=== PATIENT | male | born 1945 | race Caucasian/White ===

== ENCOUNTER → 2021-02-13 | Outpatient (CLI) | payer MEDICARE, BC | LOC: NM 13:38 | PROVIDERS: ATTEND Urology | DX: N18.9 Chronic kidney disease, unspecified (principal) | CPT/HCPCS: 78707; A9562 ==

== ENCOUNTER 2021-04-10 11:40 | Inpatient (IN) | payer MEDICARE, BC ==
[2021-04-07 11:06] LABS: BASOPHILS # (AUTO) 0.1 (0.0-0.1); BASOPHILS % 0.8 % (0.0-1.0); EOSINOPHILS # (AUTO) 0.1 (0.0-0.4); EOSINOPHILS % 1.7 % (0.0-6.0); HEMATOCRIT 44.3 % (38.2-49.6); HEMOGLOBIN 14.4 g/dL (14.0-18.0); LYMPHOCYTES # (AUTO) 1.3 (1.0-3.2); MEAN CORPUSCULAR HEMOGLOBIN 30.5 pg (28-32); MEAN CORPUSCULAR HGB CONC 32.5 g/dL (31-35); MEAN CORPUSCULAR VOLUME 93.9 fL (81-99); MONOCYTES # (AUTO) 0.5 (0.2-0.8); NEUTROPHILS # (AUTO) 4.7 (2.1-6.9); PLATELET COUNT 141 x10e3/uL (140-360); RED BLOOD COUNT 4.72 x10e6/uL (4.3-5.7); RED CELL DISTRIBUTION WIDTH 13.9 % (11.7-14.4)
[2021-04-07 11:27] LABS: ALANINE AMINOTRANSFERASE 26 IU/L (0-55); ALBUMIN/GLOBULIN RATIO 1.5 (0.8-2.0); ALKALINE PHOSPHATASE 85 IU/L (40-150); ANION GAP 13.7 mmol/L (8-16); BLOOD UREA NITROGEN 24 mg/dL (7-26); BUN/CREATININE RATIO 22 (6-25); CALCIUM 8.8 mg/dL (8.4-10.2); CARBON DIOXIDE 21 mmol/L (22-29); CHLORIDE 109 mmol/L (98-107); EST GLOMERULAR FILTRATION RATE > 60 ML/MIN (60-); GLUCOSE 129 mg/dL (74-118); POTASSIUM 4.7 mmol/L (3.5-5.1); SODIUM 139 mmol/L (136-145)
[~2021-04-10] VITALS: Ht 180.3 cm; Wt 128.8 kg
[2021-04-10] VITALS (10 sets, daily range): BP systolic 120–151; BP diastolic 69–87
[~2021-04-10 11:40] MED LIST: ALLOPURINOL300 MG PO; CETIRIZINE HCL10 MG PO; COREG12.5 MG PO; ELIQUIS5 MG PO; FUROSEMIDE40 MG PO; GLUCOPHAGE XR500 MG PO; LIPITOR10 MG PO; LOSARTAN POTASS25 MG PO; LOTRIMIN AF12 GM TOP; PLAVIX75 MG PO; SPIRONOLACTONE25 MG PO; VIT B12 PO; VIT D3 PO; VOLTAREN100 GM TOP
[2021-04-10] MEDS ORDERED: LIDOCAINE HCL 2% LOCAL INJ 5 ML SDV VIAL INJ ONE (11:53)
[2021-04-10] MEDS ORDERED: POVIDONE IODINE 0.05% 0.05 % ML PO ONE (11:53)
[2021-04-10] MEDS ORDERED: PHENYLEPHRINE HCL 1% 10 MG/ML VIAL ONE (11:53)
[2021-04-10] MEDS ORDERED: ONDANSETRON HCL INJ 2MG/ML 2ML 2 MG/ML VIAL ONE (11:53)
[2021-04-10] MEDS ORDERED: GLYCOPYRROLATE INJ 0.2 MG/ML VIAL ONE (11:53)
[2021-04-10] MEDS ORDERED: PROPOFOL IV EMULSION 10 MG/ML 20 ML VIAL ONE (11:53)
[2021-04-10] MEDS ORDERED: ROCURONIUM BROMIDE 10 MG/ML 5ML VIAL IV ONE (11:53)
[2021-04-10] MEDS ORDERED: NEOSTIGMINE 1 MG/ML 10ML VIAL ONE (11:53)
[2021-04-10] MEDS ORDERED: DEXAMETHASONE SOD PHOS INJ 4 MG/ML VIAL ONE (11:53)
[2021-04-10] MEDS ORDERED: SEVOFLURANE INHAL SOLN 250 ML PEN BTL ONE (11:53)
[2021-04-10] MEDS ORDERED: MANNITOL 25% 12.5GM/50ML 50 ML ONE (11:55)
[2021-04-10] MEDS ORDERED: CEFAZOLIN SOD 1 GM/NS 50ML 100 ML IV ONE (12:32)
[2021-04-10] MEDS ORDERED: MORPHINE SULFATE 1 MG/ML 30ML PCA IV PRN (13:00)
[2021-04-10] MEDS: SODIUM CHLORIDE 0.9% 250ML IRRIG IR SCH ×3 (13:00→21:24)
[2021-04-10] MEDS ORDERED: ONDANSETRON HCL INJ 2MG/ML 2ML 2 MG/ML VIAL IV PRN (13:00)
[2021-04-10] MEDS ORDERED: DIPHENHYDRAMINE HCL INJ 50 MG/ML VIAL IM PRN (13:00)
[2021-04-10] MEDS ORDERED: SOD CHL 0.45%/POT CHL 20MEQ 1,000 ML IV SCH (13:00)
[2021-04-10] MEDS ORDERED: NALOXONE HCL INJ 0.4 MG/ML AMP IV PRN (13:00)
[2021-04-10] MEDS ORDERED: FENTANYL CITRATE/PF 100MCG/2 ML INJ ONE ×2 (16:15→19:29)
[2021-04-10] MEDS ORDERED: MORPHINE SULFATE 1 MG/ML 30ML PCA ONE (16:19)
[2021-04-10 16:55] LABS: BASOPHILS # (AUTO) 0.1 (0.0-0.1); BASOPHILS % 0.4 % (0.0-1.0); EOSINOPHILS % 0.1 % (0.0-6.0); HEMATOCRIT 44.1 % (38.2-49.6); LYMPHOCYTES # (AUTO) 0.8 (1.0-3.2); LYMPHOCYTES % 6.3 % (18.0-39.1); MEAN CORPUSCULAR HGB CONC 31.7 g/dL (31-35); MEAN CORPUSCULAR VOLUME 94.6 fL (81-99); MONOCYTES # (AUTO) 0.3 (0.2-0.8); MONOCYTES % 2.5 % (4.4-11.3); NEUTROPHILS % 90.3 % (38.7-80.0); PLATELET COUNT 141 x10e3/uL (140-360); RED BLOOD COUNT 4.66 x10e6/uL (4.3-5.7); RED CELL DISTRIBUTION WIDTH 13.8 % (11.7-14.4)
[2021-04-10 17:13] LABS: CALCIUM 8.6 mg/dL (8.4-10.2); CREATININE, SERUM 1.27 mg/dL (0.72-1.25)
[2021-04-10] MEDS ORDERED: ACETAMINOPHEN 1000 MG/100 ML IV PRN (18:00)
[2021-04-10] MEDS: CEFAZOLIN SOD 1 GM/NS 50ML 50 ML IV SCH (21:25)
[2021-04-10] MEDS: SODIUM CHLORIDE 0.45% 1,000 ML IV SCH (22:13)
[2021-04-11] VITALS (26 sets, daily range): BP systolic 92–138; BP diastolic 56–90
[2021-04-11] MEDS: SODIUM CHLORIDE 0.9% 250ML IRRIG IR SCH ×3 (01:00→07:46)
[2021-04-11 05:13] LABS: BASOPHILS % 0.1 % (0.0-1.0); HEMATOCRIT 44.4 % (38.2-49.6); HEMOGLOBIN 14.1 g/dL (14.0-18.0); LYMPHOCYTES # (AUTO) 0.4 (1.0-3.2); LYMPHOCYTES % 2.8 % (18.0-39.1); MEAN CORPUSCULAR HEMOGLOBIN 30.4 pg (28-32); MEAN CORPUSCULAR HGB CONC 31.8 g/dL (31-35); MEAN CORPUSCULAR VOLUME 95.7 fL (81-99); MONOCYTES # (AUTO) 0.9 (0.2-0.8); MONOCYTES % 6.1 % (4.4-11.3); NEUTROPHILS % 90.4 % (38.7-80.0); PLATELET COUNT 129 x10e3/uL (140-360); RED BLOOD COUNT 4.64 x10e6/uL (4.3-5.7); RED CELL DISTRIBUTION WIDTH 13.5 % (11.7-14.4)
[2021-04-11 05:30] LABS: CALCIUM 8.4 mg/dL (8.4-10.2); CREATININE, SERUM 1.54 mg/dL (0.72-1.25)
[2021-04-11] MEDS: SODIUM CHLORIDE 0.45% 1,000 ML IV SCH ×3 (06:20→21:11)
[2021-04-11] MEDS: CEFAZOLIN SOD 1 GM/NS 50ML 50 ML IV SCH ×3 (06:20→21:18)
[2021-04-11] MEDS ORDERED: DEXTROSE 50% SYRINGE 50 ML IV STA (07:16)
[2021-04-11] MEDS ORDERED: INSULIN REGULAR, HUMAN 100 UNIT/1 ML 3ML VIAL IV ONE (07:30)
[2021-04-11] MEDS ORDERED: CALCIUM GLUCONATE 10% INJ 9.3 MEQ in SODIUM CHLORIDE 0.9% 100 ML 100 ML IV ONE (07:30)
[2021-04-11] MEDS ORDERED: FUROSEMIDE INJ 10 MG/ML 4 ML VIAL IV ONE ×2 (07:30→19:30)
[2021-04-11] MEDS ORDERED: MORPHINE SULFATE 1 MG/ML 30ML PCA IV PRN (11:45)
[2021-04-11 12:23] LABS: CREATINE KINASE MB 4.4 ng/mL (0-5.0)
[2021-04-12] VITALS (19 sets, daily range): BP systolic 99–135; BP diastolic 58–83
[2021-04-12 05:53] LABS: BASOPHILS % 0.2 % (0.0-1.0); EOSINOPHILS # (AUTO) 0.1 (0.0-0.4); EOSINOPHILS % 0.5 % (0.0-6.0); HEMATOCRIT 41.6 % (38.2-49.6); HEMOGLOBIN 13.7 g/dL (14.0-18.0); LYMPHOCYTES # (AUTO) 0.8 (1.0-3.2); LYMPHOCYTES % 7.8 % (18.0-39.1); MEAN CORPUSCULAR HEMOGLOBIN 30.7 pg (28-32); MEAN CORPUSCULAR HGB CONC 32.9 g/dL (31-35); MEAN CORPUSCULAR VOLUME 93.3 fL (81-99); MONOCYTES # (AUTO) 1.1 (0.2-0.8); MONOCYTES % 10.1 % (4.4-11.3); NEUTROPHILS # (AUTO) 8.5 (2.1-6.9); PLATELET COUNT 155 x10e3/uL (140-360); RED BLOOD COUNT 4.46 x10e6/uL (4.3-5.7)
[2021-04-12 06:10] LABS: ALBUMIN 3.5 g/dL (3.5-5.0); ALBUMIN/GLOBULIN RATIO 1.2 (0.8-2.0); ANION GAP 18.5 mmol/L (8-16); CALCIUM 8.6 mg/dL (8.4-10.2); CREATININE, SERUM 1.86 mg/dL (0.72-1.25); POTASSIUM 4.5 mmol/L (3.5-5.1)
[2021-04-12] MEDS: CEFAZOLIN SOD 1 GM/NS 50ML 50 ML IV SCH ×3 (06:15→21:34)
[2021-04-12] MEDS ORDERED: BISACODYL 10 MG SUPP PR ONE (15:30)
[2021-04-12] MEDS: SODIUM CHLORIDE 0.45% 1,000 ML IV SCH (15:44)
[2021-04-13] VITALS (8 sets, daily range): BP systolic 116–144; BP diastolic 72–87
[2021-04-13 05:23] LABS: BASOPHILS % 0.5 % (0.0-1.0); EOSINOPHILS # (AUTO) 0.1 (0.0-0.4); EOSINOPHILS % 1.7 % (0.0-6.0); HEMATOCRIT 39.7 % (38.2-49.6); HEMOGLOBIN 12.9 g/dL (14.0-18.0); LYMPHOCYTES # (AUTO) 0.8 (1.0-3.2); LYMPHOCYTES % 10.2 % (18.0-39.1); MEAN CORPUSCULAR HEMOGLOBIN 30.3 pg (28-32); MEAN CORPUSCULAR HGB CONC 32.5 g/dL (31-35); MEAN CORPUSCULAR VOLUME 93.2 fL (81-99); MONOCYTES # (AUTO) 0.8 (0.2-0.8); MONOCYTES % 10.1 % (4.4-11.3); NEUTROPHILS # (AUTO) 6.3 (2.1-6.9); NEUTROPHILS % 77.1 % (38.7-80.0); PLATELET COUNT 112 x10e3/uL (140-360); RED BLOOD COUNT 4.26 x10e6/uL (4.3-5.7); RED CELL DISTRIBUTION WIDTH 13.8 % (11.7-14.4)
[2021-04-13 05:57] LABS: CALCIUM 8.5 mg/dL (8.4-10.2); CREATININE, SERUM 1.66 mg/dL (0.72-1.25)
[2021-04-13] MEDS: CEFAZOLIN SOD 1 GM/NS 50ML 50 ML IV SCH ×3 (06:14→22:03)
[2021-04-13] MEDS ORDERED: TRAMADOL HCL 50 MG TAB PO PRN (08:00)
[2021-04-13] MEDS ORDERED: BISACODYL 10 MG SUPP PR PRN (08:00)
[2021-04-13] MEDS ORDERED: BISACODYL 10 MG SUPP PR ONE (08:30)
[2021-04-13] MEDS: DOCUSATE SODIUM 100 MG CAP PO SCH ×2 (10:30→17:31)
[2021-04-13] MEDS: SODIUM CHLORIDE 0.45% 1,000 ML IV SCH (17:31)
[2021-04-14] VITALS (8 sets, daily range): BP systolic 110–155; BP diastolic 83–92
[2021-04-14] MEDS: CEFAZOLIN SOD 1 GM/NS 50ML 50 ML IV SCH ×3 (06:09→21:11)
[2021-04-14 06:21] LABS: BASOPHILS % 0.4 % (0.0-1.0); EOSINOPHILS # (AUTO) 0.1 (0.0-0.4); EOSINOPHILS % 1.4 % (0.0-6.0); HEMATOCRIT 41.2 % (38.2-49.6); HEMOGLOBIN 13.5 g/dL (14.0-18.0); LYMPHOCYTES # (AUTO) 0.5 (1.0-3.2); LYMPHOCYTES % 6.3 % (18.0-39.1); MEAN CORPUSCULAR HGB CONC 32.8 g/dL (31-35); MEAN CORPUSCULAR VOLUME 91.6 fL (81-99); MONOCYTES # (AUTO) 0.6 (0.2-0.8); MONOCYTES % 7.9 % (4.4-11.3); NEUTROPHILS # (AUTO) 6.2 (2.1-6.9); NEUTROPHILS % 83.7 % (38.7-80.0); PLATELET COUNT 124 x10e3/uL (140-360); RED CELL DISTRIBUTION WIDTH 13.6 % (11.7-14.4)
[2021-04-14 06:48] LABS: ANION GAP 17.7 mmol/L (8-16); CALCIUM 8.4 mg/dL (8.4-10.2); CREATININE, SERUM 1.53 mg/dL (0.72-1.25); POTASSIUM 3.7 mmol/L (3.5-5.1)
[2021-04-14] MEDS ORDERED: HYDRALAZINE HCL 25 MG TAB PO PRN (08:45)
[2021-04-14] MEDS: LORATADINE 10 MG TAB PO SCH (09:00)
[2021-04-14] MEDS: ALLOPURINOL 300 MG TAB PO SCH (09:00)
[2021-04-14] MEDS: DOCUSATE SODIUM 100 MG CAP PO SCH ×2 (09:28→16:42)
[2021-04-14] MEDS: ATORVASTATIN 40 MG TAB PO SCH (09:40)
[2021-04-14] MEDS ORDERED: CARVEDILOL 12.5 MG TAB PO SCH (17:00)
[2021-04-15 01:16] VITALS: BP 122/82
[2021-04-15] MEDS: CEFAZOLIN SOD 1 GM/NS 50ML 50 ML IV SCH (05:26)
[2021-04-15 05:34] LABS: BASOPHILS % 0.5 % (0.0-1.0); EOSINOPHILS # (AUTO) 0.2 (0.0-0.4); EOSINOPHILS % 3.7 % (0.0-6.0); HEMATOCRIT 38.7 % (38.2-49.6); HEMOGLOBIN 12.8 g/dL (14.0-18.0); LYMPHOCYTES # (AUTO) 1.1 (1.0-3.2); MEAN CORPUSCULAR HEMOGLOBIN 30.3 pg (28-32); MEAN CORPUSCULAR HGB CONC 33.1 g/dL (31-35); MEAN CORPUSCULAR VOLUME 91.5 fL (81-99); MONOCYTES # (AUTO) 0.7 (0.2-0.8); MONOCYTES % 10.7 % (4.4-11.3); NEUTROPHILS # (AUTO) 4.5 (2.1-6.9); NEUTROPHILS % 68.5 % (38.7-80.0); PLATELET COUNT 131 x10e3/uL (140-360); RED BLOOD COUNT 4.23 x10e6/uL (4.3-5.7); RED CELL DISTRIBUTION WIDTH 13.6 % (11.7-14.4)
[2021-04-15 05:55] LABS: ANION GAP 12.7 mmol/L (8-16); CALCIUM 8.1 mg/dL (8.4-10.2); CREATININE, SERUM 1.33 mg/dL (0.72-1.25); POTASSIUM 3.7 mmol/L (3.5-5.1)
[2021-04-15 05:59] VITALS: BP 115/73
[2021-04-15 06:13] LABS: MAGNESIUM 2.2 MG/DL (1.3-2.1); PHOSPHORUS 3.2 MG/DL (2.3-4.7)
[2021-04-15 06:33] LABS: THYROID STIMULATING HORMONE 0.791 uIU/mL (0.350-4.940)
[2021-04-15 08:17] VITALS: BP 124/72
[2021-04-15] MEDS: ALLOPURINOL 300 MG TAB PO SCH (08:42)
[2021-04-15] MEDS: DOCUSATE SODIUM 100 MG CAP PO SCH (08:42)
[2021-04-15] MEDS: LORATADINE 10 MG TAB PO SCH (08:42)
[2021-04-15] MEDS: ATORVASTATIN 40 MG TAB PO SCH (08:42)
[2021-04-15 09:14] VITALS: BP 124/72
[2021-04-15 11:25] VITALS: BP 124/79
[2021-04-15] MEDS ORDERED: CARVEDILOL 12.5 MG TAB PO SCH (17:00)
== END 2021-04-15 12:03 | disposition home or self-care (01) | DRG 656 ==
LOC: ICU 11:40 → OR 11:40 → EDSTATUS 13:30 → OR 17:34 → ICU 17:34 → MED/SURG 04-12 21:08
PROVIDERS: ADMIT Internal Medicine; ATTEND Internal Medicine
PROC: 0TB10ZZ Excision of Left Kidney, Open Approach (ICD-10-PCS; principal; 2021-04-10 13:30)
DX: C64.2 Malignant neoplasm of left kidney, except renal pelvis (principal); I50.43 Acute on chronic combined systolic (congestive) and diastolic (congestive) heart failure; N17.9 Acute kidney failure, unspecified; I13.0 Hypertensive heart and chronic kidney disease with heart failure and stage 1 through stage 4 chronic kidney disease, or unspecified chronic kidney disease; I48.0 Paroxysmal atrial fibrillation; E66.01 Morbid (severe) obesity due to excess calories; R07.89 Other chest pain; N40.1 Benign prostatic hyperplasia with lower urinary tract symptoms; R35.1 Nocturia; E11.22 Type 2 diabetes mellitus with diabetic chronic kidney disease; Z96.652 Presence of left artificial knee joint; N18.30 Chronic kidney disease, stage 3 unspecified; Z95.810 Presence of automatic (implantable) cardiac defibrillator; Z88.5 Allergy status to narcotic agent; Z83.3 Family history of diabetes mellitus; Z82.49 Family history of ischemic heart disease and other diseases of the circulatory system; Z68.39 Body mass index [BMI] 39.0-39.9, adult; Z86.718 Personal history of other venous thrombosis and embolism; Z86.73 Personal history of transient ischemic attack (TIA), and cerebral infarction without residual deficits; Z87.891 Personal history of nicotine dependence
CPT/HCPCS: 36415; 71045; 71046; 80048; 80053; 82550; 82553; 82948; 83735; 84100; 84132; 84443; 84484; 85025; 86850; 86900; 86920; 88309; 93005; 93306; 93970; 97139; J0610; J0690; J1100; J1817; J1940; J2001; J2150; J2270; J2370; J2405; J2710; J3010; J7799

== ENCOUNTER → 2021-08-25 | Outpatient (CLI) | payer MEDICARE, BC | LOC: US 12:54 | PROVIDERS: ATTEND Urology | DX: C64.2 Malignant neoplasm of left kidney, except renal pelvis (principal) | CPT/HCPCS: 71046; 76770 ==

== ENCOUNTER → 2021-11-24 | Outpatient (CLI) | payer MEDICARE, BC | LOC: US 09:36 | PROVIDERS: ATTEND Urology | DX: C64.2 Malignant neoplasm of left kidney, except renal pelvis (principal) | CPT/HCPCS: 71046; 76770 ==

== ENCOUNTER → 2022-04-12 | Outpatient (CLI) | payer MEDICARE, BC | LOC: US 12:26 | PROVIDERS: ATTEND Urology | DX: C64.2 Malignant neoplasm of left kidney, except renal pelvis (principal) | CPT/HCPCS: 71046; 76770 ==

== ENCOUNTER → 2023-04-29 | Outpatient (CLI) | payer MEDICARE | END | disposition home or self-care (01) | LOC: US 11:25 | PROVIDERS: ATTEND Urology | DX: Z08 Encounter for follow-up examination after completed treatment for malignant neoplasm (principal); Z85.528 Personal history of other malignant neoplasm of kidney; N18.9 Chronic kidney disease, unspecified; Z90.5 Acquired absence of kidney | CPT/HCPCS: 71046; 76770 ==

== ENCOUNTER → 2024-05-21 | Outpatient (REF) | payer MEDICARE | LOC: US 11:32 | PROVIDERS: ATTEND Urology | DX: C64.2 Malignant neoplasm of left kidney, except renal pelvis (principal) | CPT/HCPCS: 71046; 76770; 76857 ==

== ENCOUNTER → 2024-12-20 | Outpatient (REF) | payer MEDICARE | LOC: US 10:40 | PROVIDERS: ATTEND Urology | DX: C64.2 Malignant neoplasm of left kidney, except renal pelvis (principal) | CPT/HCPCS: 71046; 76770; 76857 ==